=== PATIENT | male | born 1950 | race Caucasian/White ===

== ENCOUNTER 2016-11-12 12:10 | Emergency (ER) | payer OTHER ==
[~2016-11-12] VITALS: Ht 177.8 cm; Wt 90.0 kg
[2016-11-12] MEDS ORDERED: METH10 PO (12:18)
[2016-11-12] MEDS ORDERED: LISI-661 PO (12:18)
[2016-11-12] MEDS ORDERED: ONDANSETRON HCL 4 MG/2 ML VIAL IM ONE (12:30)
[2016-11-12] MEDS ORDERED: MORPHINE SULFATE 4 MG/ML SYRINGE IM ONE (12:30)
[2016-11-12 14:52] VITALS: BP 137/89
== END 2016-11-12 14:55 | disposition home or self-care (01) ==
LOC: EMS 12:11
DX: M54.5 Low back pain (principal); I10 Essential (primary) hypertension; F11.90 Opioid use, unspecified, uncomplicated; V47.5XXA Car driver injured in collision with fixed or stationary object in traffic accident, initial encounter; Y93.89 Activity, other specified; Y92.411 Interstate highway as the place of occurrence of the external cause; Y99.8 Other external cause status
CPT/HCPCS: 72125; 72128; 72131; 96372; 99284; J2270; J2405